=== PATIENT | male | born 1960 ===

== ENCOUNTER 2017-08-23 07:05 | Emergency (ER) | payer SELFPAY ==
--- NOTE | 2017-08-23 07:17 | EDPHY ---
H & P Time Seen by Provider: 08/23/17 07:05 HPI/ROS: CHIEF COMPLAINT: Tachycardia HISTORY OF PRESENT ILLNESS: Patient is a 55-year-old homeless man who was running from police and swinging a hammer. Eventually he was arrested. Police noticed he had a persistent cough and they called paramedics. Paramedics found that he was hypertensive and tachycardic but afebrile with clear breath sounds. They also mentioned that he was coughing. Here in the ER the patient is not cooperative and will not talk or answer questions. He has not coughed since arriving however. His saturations are good. His hypertension has improved but he still remains slightly tachycardic at 109 . He has refused interventions multiple times and refuses IV or blood work. REVIEW OF SYSTEMS: Unable to obtain secondary to uncooperative miss EXAM: GENERAL: Disheveled. HEAD: Atraumatic, normocephalic. EYES: Pupils equal round and reactive to light, extraocular movements intact, sclera anicteric, conjunctiva are normal. ENT: TMs normal, nares patent, oropharynx clear without exudates. Moist mucous membranes. NECK: Normal range of motion, supple without lymphadenopathy or JVD. LUNGS: Breath sounds clear to auscultation bilaterally and equal. No wheezes rales or rhonchi. HEART: Regular rate and rhythm without murmurs, rubs or gallops. ABDOMEN: Soft, nontender, normoactive bowel sounds. No guarding, no rebound. No masses appreciated. BACK: No CVA tenderness, no spinal tenderness, step-offs or deformities EXTREMITIES: Normal range of motion, no pitting or edema. No clubbing or cyanosis. NEUROLOGICAL: Cranial nerves II through XII grossly intact. Normal speech, normal gait. 5/5 strength, normal movement in all extremities, normal sensation PSYCH: And cooperative, SKIN: Dry skin throughout the patient states his baseline Source: Patient Exam Limitations: No limitations - Medical/Surgical History Hx Asthma: No Hx Chronic Respiratory Disease: No Hx Diabetes: No Hx Cardiac Disease: No Hx Renal Disease: No Hx Alcoholism: Yes Other PMH: Chronic dry skin, hypertension - Family History Significant Family History: No pertinent family hx Constitutional: Initial Vital Signs Temperature (C) 36.9 C 08/23/17 07:00 Heart Rate 88 08/23/17 07:00 Respiratory Rate 15 08/23/17 07:00 Blood Pressure 160/106 H 08/23/17 07:00 O2 Sat (%) 5 L 08/23/17 07:00 Medical Decision Making ED Course/Re-evaluation: Patient is refusing IV and also refusing chest x-ray. His vital signs are improving on their own. We will observe him and have him hydrate orally. He has not coughed since arriving. 7:40 p.m. the patient's heart rate is 85. His blood pressure is 160/115. He is drinking water. He has not had any respiratory difficulty and has not coughed since arriving. I will clear for nursing home. He is refusing any further interventions. Differential Diagnosis: Partial list of the Differential diagnosis considered include but were not limited to; anxiety, stress reaction, asthma, emphysema and although unlikely based on the history and physical exam, I also considered bronchitis, pneumonia , sepsis. I discussed these differential diagnoses and the plan with the patient as well as the usual and expected course. The patient understands that the diagnosis is provisional and that in medicine we are not always correct and that further workup is often warranted. Usual and customary warnings were given. All of the patient's questions were answered. The patient was instructed to return to the emergency department should the symptoms at all worsen or return, otherwise to followup with the physician as we discussed. Departure - Departure Disposition: Law Enforcement/Court/Half-Way Clinical Impression: Stress reaction Condition: Fair Instructions: Stress (ED) Referrals: Patient,NotPresent [Primary Care Provider] - As per Instructions [facility],. [Clinic] - As per Instructions
[2017-08-23 07:55] VITALS: BP 160/106
== END 2017-08-23 07:45 ==
LOC: EDBD 07:05
DX: F43.9 Reaction to severe stress, unspecified (principal); I10 Essential (primary) hypertension